=== PATIENT | male | born 1940 | race Hispanic/Latino ===

== ENCOUNTER 2021-01-10 19:52 | Inpatient (IN) | payer OTHER ==
[~2021-01-10] VITALS: Ht 162.6 cm; Wt 70.4 kg
[2021-01-10] MEDS: DOXYCYCLINE 100MG+NS 250ML IV SCH (01:00)
[2021-01-10 20:13] VITALS: BP 123/83
[2021-01-10 21:15] LABS: BASOPHILS % (AUTO) 0.4 % (0.0-5.0); HEMATOCRIT 55.7 % (42-54); MEAN CORPUSCULAR HEMOGLOBIN 30.3 pg (27.0-33.0); MEAN CORPUSCULAR HGB CONC 34.1 g/dL (32.0-36.0); MEAN CORPUSCULAR VOLUME 88.8 fL (79-99); MONOCYTES % (AUTO) 7.7 % (3.0-13.0); NEUTROPHILS % (AUTO) 79.3 % (40.0-77.0); PLATELET COUNT (AUTO) 176 K/uL (130-400); RED BLOOD CELL COUNT(AUTO) 6.27 MIL/uL (4.50-6.20); RED CELL DISTRIBUTION WIDTH 13.2 % (11.0-15.5)
[2021-01-10 21:27] LABS: INR 1.07 (0.85-1.15); PROTHROMBIN TIME 11.6 SEC (9.6-11.6)
[2021-01-10 21:28] LABS: PARTIAL THROMBOPLASTIN TIME 31.5 SEC (26.3-35.5)
[2021-01-10 21:32] LABS: ALBUMIN 2.6 g/dL (3.5-5.0); CREATININE 1.4 mg/dL (0.5-1.5); POTASSIUM 4.2 mmol/L (3.5-5.1); TOTAL PROTEIN, SERUM 7.1 g/dL (6.0-8.3)
[2021-01-10 21:41] VITALS: BP 132/75
[2021-01-10 21:43] LABS: B-TYPE NATRIURETIC PEPTIDE 20 pg/mL (0-100)
[2021-01-10 22:17] LABS: BILIRUBIN,URINE Negative (NEGATIVE); COLOR,URINE Yellow (YELLOW); GLUCOSE, URINE (UA) >=1000 mg/dL (NEGATIVE); KETONES,URINE Trace mg/dL (NEGATIVE); LEUKOCYTE ESTERASE ,URINE Negative (NEGATIVE); NITRATE,URINE Negative (NEGATIVE); OCCULT BLOOD,URINE Negative (NEGATIVE); PROTEIN,URINE POS 1+ mg/dL (NEGATIVE); UROBILINOGEN,URINE 0.2 mg/dL (0.2-1.0)
[2021-01-10] MEDS ORDERED: AZITHROMYCIN 500MG VIAL IVPB ONE (22:30)
[2021-01-10] MEDS ORDERED: CEFTRIAXONE 1G VIAL IVP ONE (22:30)
[2021-01-10] MEDS ORDERED: 0.9% NACL 250ML IVPB ONE (22:30)
[2021-01-10 22:33] LABS: APPEARANCE,URINE CLEAR (CLEAR)
[2021-01-10 22:45] LABS: BACTERIA,URINE Rare /HPF (None Seen); WBC,URINE 0-1 /HPF (0-1)
[2021-01-10 22:46] LABS: SQUAMOUS EPITHELIAL CELL,UR 0-2 /HPF (0-2)
[2021-01-10 22:48] VITALS: BP 124/75
[2021-01-10] MEDS: CEFTRIAXONE 1G VIAL IVP SCH (23:00)
[2021-01-10] MEDS ORDERED: ERGOCALCIFEROL (VITAMIN D2) 50,000 UNIT CAPSULE PO ONE (23:00)
[2021-01-10] MEDS ORDERED: HEPARIN 5,000 UNIT VIAL SQ PRN (23:00)
[2021-01-10] MEDS ORDERED: PHARMACY COMMUNICATION MISC SCH (23:00)
[2021-01-10] MEDS ORDERED: HEPARIN 25,000 UNITS/250ML D5W 250 ML IV SCH (23:00)
[2021-01-10] MEDS ORDERED: INSULIN HUMULIN R 100 UNIT/ML 3ML IV ONE (23:00)
[2021-01-10] MEDS ORDERED: ASPIRIN 81MG CHEW TAB ONE ×2 (23:01→23:09)
[2021-01-10] MEDS ORDERED: AZITHROMYCIN 500MG+NS 250ML 250 ML IV ONE (23:01)
[2021-01-10 23:30] LABS: ABG BASE EXCESS -2.5 mmol/L (-2.0-3.0); ABG OXYGEN SATURATION 91.2 % (95.0-99.0); ABG PCO2 33 mmHg (35-48)
[2021-01-10] MEDS: DEXAMETHASONE SOD PHOSPHATE 4 MG/ML 1ML VIAL IVP SCH (23:38)
[2021-01-10] MEDS: ASPIRIN 81MG CHEW TAB PO SCH (23:40)
[2021-01-11] VITALS (7 sets, daily range): BP systolic 103–124; BP diastolic 58–76
[2021-01-11] MEDS: ALBUTEROL INHALER 90MCG/INH IH SCH ×5 (00:04→19:28)
[2021-01-11] MEDS: NITROGLYCERIN 1GM OINT 1 INCH/1GM TD SCH ×4 (00:04→23:41)
[2021-01-11] MEDS ORDERED: ALBUTEROL INHALER 90MCG/INH IH ONE (00:04)
[2021-01-11] MEDS: 0.9%NACL 1000ML 1,000 ML IV SCH ×2 (00:22→08:32)
[2021-01-11] MEDS ORDERED: HEPARIN 5,000 UNIT VIAL ONE (00:34)
[2021-01-11 06:28] LABS: ABG BASE EXCESS -2.8 mmol/L (-2.0-3.0); ABG HCO3 21.4 mmol/L (21.0-28.0); ABG OXYGEN SATURATION 91.9 % (95.0-99.0); ABG PCO2 36 mmHg (35-48)
[2021-01-11 06:36] LABS: BASOPHILS % (AUTO) 0.1 % (0.0-5.0); HEMATOCRIT 51.9 % (42-54); LYMPHOCYTES % (AUTO) 7.6 % (21.0-51.0); MEAN CORPUSCULAR HEMOGLOBIN 30.4 pg (27.0-33.0); MEAN CORPUSCULAR HGB CONC 34.1 g/dL (32.0-36.0); MEAN CORPUSCULAR VOLUME 89.2 fL (79-99); MONOCYTES % (AUTO) 3.4 % (3.0-13.0); NEUTROPHILS % (AUTO) 88.1 % (40.0-77.0); PLATELET COUNT (AUTO) 182 K/uL (130-400); RED BLOOD CELL COUNT(AUTO) 5.82 MIL/uL (4.50-6.20); RED CELL DISTRIBUTION WIDTH 13.2 % (11.0-15.5); WHITE BLOOD COUNT (AUTO) 7.9 K/uL (4.8-10.8)
[2021-01-11] MEDS ORDERED: COMPOUND IV REFRIGERATED 1 EACH IVSOLN MISC PRN (07:00)
[2021-01-11] MEDS ORDERED: REMDESIVIR (EUA) 520 200 MG in 0.9% NACL 250ML 250 ML IV ONE (07:00)
[2021-01-11 07:04] LABS: INR 1.15 (0.85-1.15); PROTHROMBIN TIME 12.4 SEC (9.6-11.6)
[2021-01-11 07:06] LABS: PARTIAL THROMBOPLASTIN TIME 87.4 SEC (26.3-35.5)
[2021-01-11 07:33] LABS: ALBUMIN 2.3 g/dL (3.5-5.0); BILIRUBIN,TOTAL 0.7 mg/dL (0.2-1.0); CREATININE 1.1 mg/dL (0.5-1.5); POTASSIUM 4.2 mmol/L (3.5-5.1); TOTAL PROTEIN, SERUM 6.5 g/dL (6.0-8.3)
[2021-01-11 07:36] LABS: TROPONIN I 0.93 ng/mL (0.00-0.06)
[2021-01-11] MEDS: INSULIN HUMULIN R 100 UNIT/ML 3ML SQ SCH ×4 (08:09→21:00)
[2021-01-11 08:19] LABS: CRP QUANTITATIVE 193.6 mg/L (0.00-9.0)
[2021-01-11] MEDS: CARVEDILOL 3.125 MG TABLET PO SCH ×2 (08:32→21:26)
[2021-01-11] MEDS: LISINOPRIL 10 MG TABLET PO SCH (08:33)
[2021-01-11] MEDS: ASCORBIC ACID 500 MG TAB PO SCH (08:33)
[2021-01-11] MEDS: ZINC SULFATE 220 CAPSULE PO SCH (08:33)
[2021-01-11] MEDS ORDERED: ASPIRIN 81 MG EC TAB PO SCH (09:00)
[2021-01-11] MEDS: DOXYCYCLINE 100MG+NS 250ML IV SCH ×2 (11:33→23:41)
[2021-01-11] MEDS: CEFTRIAXONE 1G VIAL IVP SCH ×2 (11:33→23:41)
[2021-01-11 13:07] LABS: TROPONIN I 0.73 ng/mL (0.00-0.06)
[2021-01-11 15:42] LABS: TROPONIN I 0.6 ng/mL (0.00-0.06)
[2021-01-11] MEDS: ATORVASTATIN 10 MG TABLET PO SCH (21:26)
[2021-01-11 22:54] LABS: BASOPHILS % (AUTO) 0.1 % (0.0-5.0); EOSINOPHILS % (AUTO) 1.8 % (0.0-8.0); HEMATOCRIT 49.6 % (42-54); LYMPHOCYTES % (AUTO) 8.4 % (21.0-51.0); MEAN CORPUSCULAR HGB CONC 34.3 g/dL (32.0-36.0); MEAN CORPUSCULAR VOLUME 90.3 fL (79-99); MONOCYTES % (AUTO) 7.3 % (3.0-13.0); PLATELET COUNT (AUTO) 204 K/uL (130-400); RED BLOOD CELL COUNT(AUTO) 5.49 MIL/uL (4.50-6.20); RED CELL DISTRIBUTION WIDTH 13.1 % (11.0-15.5); WHITE BLOOD COUNT (AUTO) 9.8 K/uL (4.8-10.8)
[2021-01-11] MEDS: DEXAMETHASONE SOD PHOSPHATE 4 MG/ML 1ML VIAL IVP SCH (23:41)
[2021-01-12] VITALS (9 sets, daily range): BP systolic 100–139; BP diastolic 62–76
[2021-01-12] MEDS: ALBUTEROL INHALER 90MCG/INH IH SCH ×4 (01:22→17:16)
[2021-01-12] MEDS: REMDESIVIR LABS MISC SCH (07:30)
[2021-01-12] MEDS: NITROGLYCERIN 1GM OINT 1 INCH/1GM TD SCH ×3 (07:30→23:55)
[2021-01-12 08:06] LABS: BASOPHILS % (AUTO) 0.2 % (0.0-5.0); EOSINOPHILS % (AUTO) 0.5 % (0.0-8.0); MEAN CORPUSCULAR HEMOGLOBIN 30.5 pg (27.0-33.0); MEAN CORPUSCULAR HGB CONC 33.3 g/dL (32.0-36.0); MEAN CORPUSCULAR VOLUME 91.7 fL (79-99); MONOCYTES % (AUTO) 5.9 % (3.0-13.0); NEUTROPHILS % (AUTO) 85.8 % (40.0-77.0); PLATELET COUNT (AUTO) 226 K/uL (130-400); RED CELL DISTRIBUTION WIDTH 13.4 % (11.0-15.5); WHITE BLOOD COUNT (AUTO) 11.2 K/uL (4.8-10.8)
[2021-01-12] MEDS ORDERED: PHARMACY COMMUNICATION-LABS AST AND ALT PLEASE MISC STA (08:10)
[2021-01-12 08:30] LABS: ALBUMIN 2.6 g/dL (3.5-5.0); BILIRUBIN,TOTAL 0.7 mg/dL (0.2-1.0); CRP QUANTITATIVE 156.8 mg/L (0.00-9.0); TOTAL PROTEIN, SERUM 6.9 g/dL (6.0-8.3)
[2021-01-12] MEDS: DEXAMETHASONE SOD PHOSPHATE 4 MG/ML 1ML VIAL IVP SCH ×2 (08:38→21:56)
[2021-01-12] MEDS: INSULIN HUMULIN R 100 UNIT/ML 3ML SQ SCH ×4 (09:01→21:00)
[2021-01-12] MEDS: ASPIRIN 81MG CHEW TAB PO SCH (09:01)
[2021-01-12] MEDS: ENOXAPARIN SODIUM 40 MG/0.4 ML SYRINGE SQ SCH (09:02)
[2021-01-12] MEDS: CARVEDILOL 3.125 MG TABLET PO SCH ×2 (09:02→21:57)
[2021-01-12] MEDS: LISINOPRIL 10 MG TABLET PO SCH (09:02)
[2021-01-12] MEDS: ZINC SULFATE 220 CAPSULE PO SCH (09:02)
[2021-01-12] MEDS: ASCORBIC ACID 500 MG TAB PO SCH (09:02)
[2021-01-12] MEDS: CEFTRIAXONE 1G VIAL IVP SCH ×2 (11:08→23:54)
[2021-01-12] MEDS: DOXYCYCLINE 100MG+NS 250ML IV SCH ×2 (11:08→23:54)
[2021-01-12] MEDS: REMDESIVIR (EUA) 520 100 MG in 0.9% NACL 250ML 250 ML IV SCH (13:13)
[2021-01-12] MEDS ORDERED: ALPRAZOLAM 0.25 MG TABLET ONE (16:17)
[2021-01-12] MEDS: ATORVASTATIN 10 MG TABLET PO SCH (21:56)
[2021-01-13] MEDS: ALBUTEROL INHALER 90MCG/INH IH SCH ×5 (00:21→23:59)
[2021-01-13 04:28] VITALS: BP 135/79
[2021-01-13 05:29] LABS: BASOPHILS % (AUTO) 0.2 % (0.0-5.0); HEMATOCRIT 51.9 % (42-54); MEAN CORPUSCULAR HEMOGLOBIN 30.5 pg (27.0-33.0); MEAN CORPUSCULAR HGB CONC 34.1 g/dL (32.0-36.0); MEAN CORPUSCULAR VOLUME 89.5 fL (79-99); MONOCYTES % (AUTO) 5.2 % (3.0-13.0); NEUTROPHILS % (AUTO) 89.1 % (40.0-77.0); PLATELET COUNT (AUTO) 241 K/uL (130-400); RED CELL DISTRIBUTION WIDTH 13.3 % (11.0-15.5); WHITE BLOOD COUNT (AUTO) 11.4 K/uL (4.8-10.8)
[2021-01-13 05:57] LABS: ALBUMIN 2.5 g/dL (3.5-5.0); BILIRUBIN,TOTAL 0.8 mg/dL (0.2-1.0); CRP QUANTITATIVE 90.7 mg/L (0.00-9.0); POTASSIUM 3.9 mmol/L (3.5-5.1); TOTAL PROTEIN, SERUM 6.7 g/dL (6.0-8.3)
[2021-01-13] MEDS: REMDESIVIR LABS MISC SCH (06:00)
[2021-01-13] MEDS: INSULIN HUMULIN R 100 UNIT/ML 3ML SQ SCH ×4 (06:47→20:37)
[2021-01-13] MEDS: NITROGLYCERIN 1GM OINT 1 INCH/1GM TD SCH ×2 (06:49→15:00)
[2021-01-13] MEDS: ASPIRIN 81MG CHEW TAB PO SCH (08:06)
[2021-01-13] MEDS: DEXAMETHASONE SOD PHOSPHATE 4 MG/ML 1ML VIAL IVP SCH ×2 (08:07→22:01)
[2021-01-13] MEDS: CARVEDILOL 3.125 MG TABLET PO SCH ×2 (08:07→20:36)
[2021-01-13] MEDS: LISINOPRIL 10 MG TABLET PO SCH (08:08)
[2021-01-13] MEDS: ASCORBIC ACID 500 MG TAB PO SCH (08:08)
[2021-01-13] MEDS: ZINC SULFATE 220 CAPSULE PO SCH (08:08)
[2021-01-13] MEDS: ENOXAPARIN SODIUM 40 MG/0.4 ML SYRINGE SQ SCH (08:09)
[2021-01-13] MEDS: DOXYCYCLINE 100MG+NS 250ML IV SCH ×2 (08:14→22:01)
[2021-01-13] MEDS: CEFTRIAXONE 1G VIAL IVP SCH ×2 (08:14→22:01)
[2021-01-13 08:42] VITALS: BP 132/69
[2021-01-13 11:36] VITALS: BP 127/71
[2021-01-13] MEDS: REMDESIVIR (EUA) 520 100 MG in 0.9% NACL 250ML 250 ML IV SCH (14:58)
[2021-01-13 15:28] LABS: TROPONIN I 0.47 ng/mL (0.00-0.06)
[2021-01-13 16:33] VITALS: BP 121/75
[2021-01-13 20:00] VITALS: BP 133/73
[2021-01-13] MEDS: ATORVASTATIN 10 MG TABLET PO SCH (20:35)
[2021-01-13 23:37] VITALS: BP 135/72
[2021-01-14 04:29] VITALS: BP 130/74
[2021-01-14 05:07] LABS: BASOPHILS % (AUTO) 0.2 % (0.0-5.0); HEMATOCRIT 53.1 % (42-54); LYMPHOCYTES % (AUTO) 4.6 % (21.0-51.0); MEAN CORPUSCULAR HEMOGLOBIN 30.5 pg (27.0-33.0); MEAN CORPUSCULAR HGB CONC 34.3 g/dL (32.0-36.0); MEAN CORPUSCULAR VOLUME 89.1 fL (79-99); MONOCYTES % (AUTO) 6.3 % (3.0-13.0); NEUTROPHILS % (AUTO) 88.2 % (40.0-77.0); PLATELET COUNT (AUTO) 259 K/uL (130-400); RED BLOOD CELL COUNT(AUTO) 5.96 MIL/uL (4.50-6.20); RED CELL DISTRIBUTION WIDTH 13.2 % (11.0-15.5); WHITE BLOOD COUNT (AUTO) 10.8 K/uL (4.8-10.8)
[2021-01-14 05:35] LABS: ALBUMIN 2.6 g/dL (3.5-5.0); BILIRUBIN,TOTAL 0.9 mg/dL (0.2-1.0); CREATININE 0.8 mg/dL (0.5-1.5); CRP QUANTITATIVE 55.2 mg/L (0.00-9.0); POTASSIUM 4.3 mmol/L (3.5-5.1); TOTAL PROTEIN, SERUM 6.2 g/dL (6.0-8.3)
[2021-01-14] MEDS: REMDESIVIR LABS MISC SCH (06:00)
[2021-01-14] MEDS: ALBUTEROL INHALER 90MCG/INH IH SCH ×3 (06:19→16:46)
[2021-01-14] MEDS: INSULIN HUMULIN R 100 UNIT/ML 3ML SQ SCH ×4 (06:21→20:22)
[2021-01-14 08:14] VITALS: BP 137/75
[2021-01-14] MEDS: ZINC SULFATE 220 CAPSULE PO SCH (08:35)
[2021-01-14] MEDS: ASPIRIN 81MG CHEW TAB PO SCH (08:36)
[2021-01-14] MEDS: LISINOPRIL 10 MG TABLET PO SCH (08:38)
[2021-01-14] MEDS: CARVEDILOL 3.125 MG TABLET PO SCH ×2 (08:38→20:23)
[2021-01-14] MEDS: ASCORBIC ACID 500 MG TAB PO SCH (08:38)
[2021-01-14] MEDS: BARICITINIB (EUA) 2 MG TABLET PO SCH (08:39)
[2021-01-14] MEDS: DEXAMETHASONE SOD PHOSPHATE 4 MG/ML 1ML VIAL IVP SCH ×2 (08:39→22:20)
[2021-01-14] MEDS: ENOXAPARIN SODIUM 40 MG/0.4 ML SYRINGE SQ SCH (08:39)
[2021-01-14 10:54] VITALS: BP 129/74
[2021-01-14] MEDS: DOXYCYCLINE 100MG+NS 250ML IV SCH ×2 (11:51→22:20)
[2021-01-14] MEDS: CEFTRIAXONE 1G VIAL IVP SCH ×2 (11:51→22:20)
[2021-01-14 16:28] VITALS: BP 135/70
[2021-01-14] MEDS: REMDESIVIR (EUA) 520 100 MG in 0.9% NACL 250ML 250 ML IV SCH (16:43)
[2021-01-14 19:56] VITALS: BP 130/65
[2021-01-14] MEDS: ATORVASTATIN 10 MG TABLET PO SCH (20:21)
[2021-01-14 23:51] VITALS: BP 139/79
[2021-01-15] MEDS: ALBUTEROL INHALER 90MCG/INH IH SCH ×5 (00:48→23:34)
[2021-01-15 03:54] VITALS: BP 143/77
[2021-01-15 05:19] LABS: HEMATOCRIT 50.8 % (42-54); LYMPHOCYTES % (AUTO) 7.8 % (21.0-51.0); MEAN CORPUSCULAR HEMOGLOBIN 30.4 pg (27.0-33.0); MEAN CORPUSCULAR HGB CONC 34.1 g/dL (32.0-36.0); MEAN CORPUSCULAR VOLUME 89.1 fL (79-99); MONOCYTES % (AUTO) 7.9 % (3.0-13.0); NEUTROPHILS % (AUTO) 83.8 % (40.0-77.0); PLATELET COUNT (AUTO) 247 K/uL (130-400); RED CELL DISTRIBUTION WIDTH 13.2 % (11.0-15.5); WHITE BLOOD COUNT (AUTO) 7.5 K/uL (4.8-10.8)
[2021-01-15 05:38] LABS: ALBUMIN 2.5 g/dL (3.5-5.0); CREATININE 0.8 mg/dL (0.5-1.5); CRP QUANTITATIVE 34.2 mg/L (0.00-9.0); POTASSIUM 3.6 mmol/L (3.5-5.1); TOTAL PROTEIN, SERUM 6.2 g/dL (6.0-8.3)
[2021-01-15] MEDS: REMDESIVIR LABS MISC SCH (06:00)
[2021-01-15] MEDS: INSULIN HUMULIN R 100 UNIT/ML 3ML SQ SCH ×4 (06:27→21:07)
[2021-01-15 08:06] VITALS: BP 134/72
[2021-01-15] MEDS: CARVEDILOL 3.125 MG TABLET PO SCH ×2 (08:28→21:02)
[2021-01-15] MEDS: DEXAMETHASONE SOD PHOSPHATE 4 MG/ML 1ML VIAL IVP SCH ×2 (08:28→23:16)
[2021-01-15] MEDS: ENOXAPARIN SODIUM 40 MG/0.4 ML SYRINGE SQ SCH ×2 (08:29→21:03)
[2021-01-15] MEDS: LISINOPRIL 10 MG TABLET PO SCH (08:29)
[2021-01-15] MEDS: ZINC SULFATE 220 CAPSULE PO SCH (08:29)
[2021-01-15] MEDS: ASCORBIC ACID 500 MG TAB PO SCH (08:29)
[2021-01-15] MEDS: ASPIRIN 81MG CHEW TAB PO SCH (08:29)
[2021-01-15] MEDS: BARICITINIB (EUA) 2 MG TABLET PO SCH (08:31)
[2021-01-15 11:02] VITALS: BP 139/70
[2021-01-15] MEDS: DOXYCYCLINE 100MG+NS 250ML IV SCH ×2 (13:11→23:16)
[2021-01-15] MEDS: CEFTRIAXONE 1G VIAL IVP SCH ×2 (13:11→23:16)
[2021-01-15 15:38] VITALS: BP 135/70
[2021-01-15] MEDS: REMDESIVIR (EUA) 520 100 MG in 0.9% NACL 250ML 250 ML IV SCH (17:31)
[2021-01-15 20:00] VITALS: BP 123/73
[2021-01-15] MEDS: ATORVASTATIN 10 MG TABLET PO SCH (21:02)
[2021-01-16] VITALS: BP 124/69
[2021-01-16 04:00] VITALS: BP 119/70
[2021-01-16 05:29] LABS: BASOPHILS % (AUTO) 0.1 % (0.0-5.0); HEMATOCRIT 51.5 % (42-54); LYMPHOCYTES % (AUTO) 7.9 % (21.0-51.0); MEAN CORPUSCULAR HEMOGLOBIN 30.4 pg (27.0-33.0); MEAN CORPUSCULAR HGB CONC 34.2 g/dL (32.0-36.0); MEAN CORPUSCULAR VOLUME 88.9 fL (79-99); MONOCYTES % (AUTO) 7.1 % (3.0-13.0); NEUTROPHILS % (AUTO) 84.4 % (40.0-77.0); PLATELET COUNT (AUTO) 191 K/uL (130-400); RED BLOOD CELL COUNT(AUTO) 5.79 MIL/uL (4.50-6.20); RED CELL DISTRIBUTION WIDTH 13.1 % (11.0-15.5); WHITE BLOOD COUNT (AUTO) 8.1 K/uL (4.8-10.8)
[2021-01-16] MEDS: INSULIN HUMULIN R 100 UNIT/ML 3ML SQ SCH ×4 (05:32→20:49)
[2021-01-16] MEDS: ALBUTEROL INHALER 90MCG/INH IH SCH ×3 (06:04→17:24)
[2021-01-16 06:11] LABS: ALBUMIN 2.4 g/dL (3.5-5.0); CREATININE 0.8 mg/dL (0.5-1.5); CRP QUANTITATIVE 24.3 mg/L (0.00-9.0); POTASSIUM 3.8 mmol/L (3.5-5.1); TOTAL PROTEIN, SERUM 5.8 g/dL (6.0-8.3)
[2021-01-16 08:19] VITALS: BP 150/81
[2021-01-16] MEDS: DEXAMETHASONE SOD PHOSPHATE 4 MG/ML 1ML VIAL IVP SCH ×2 (09:15→20:38)
[2021-01-16] MEDS: BARICITINIB (EUA) 2 MG TABLET PO SCH (09:15)
[2021-01-16] MEDS: ZINC SULFATE 220 CAPSULE PO SCH (09:15)
[2021-01-16] MEDS: CARVEDILOL 3.125 MG TABLET PO SCH ×2 (09:16→20:36)
[2021-01-16] MEDS: ASCORBIC ACID 500 MG TAB PO SCH (09:16)
[2021-01-16] MEDS: LISINOPRIL 10 MG TABLET PO SCH (09:17)
[2021-01-16] MEDS: ENOXAPARIN SODIUM 40 MG/0.4 ML SYRINGE SQ SCH ×2 (09:18→20:37)
[2021-01-16] MEDS: ASPIRIN 325MG TAB PO SCH (11:16)
[2021-01-16 11:29] VITALS: BP 150/77
[2021-01-16] MEDS: DOXYCYCLINE 100MG+NS 250ML IV SCH ×2 (12:28→20:38)
[2021-01-16] MEDS: CEFTRIAXONE 1G VIAL IVP SCH ×2 (12:28→20:37)
[2021-01-16 16:55] VITALS: BP 152/77
[2021-01-16] MEDS ORDERED: 0.9% NACL 250ML 250 ML ONE (19:58)
[2021-01-16 20:25] VITALS: BP 144/66
[2021-01-16] MEDS: ATORVASTATIN 10 MG TABLET PO SCH (20:35)
[2021-01-17 00:32] VITALS: BP 129/80
[2021-01-17 05:05] LABS: BASOPHILS % (AUTO) 0.2 % (0.0-5.0); EOSINOPHILS % (AUTO) 0.2 % (0.0-8.0); LYMPHOCYTES % (AUTO) 9.6 % (21.0-51.0); MEAN CORPUSCULAR HGB CONC 34.2 g/dL (32.0-36.0); MEAN CORPUSCULAR VOLUME 87.9 fL (79-99); MONOCYTES % (AUTO) 7.4 % (3.0-13.0); NEUTROPHILS % (AUTO) 81.9 % (40.0-77.0); PLATELET COUNT (AUTO) 205 K/uL (130-400); RED BLOOD CELL COUNT(AUTO) 6.03 MIL/uL (4.50-6.20); WHITE BLOOD COUNT (AUTO) 11.8 K/uL (4.8-10.8)
[2021-01-17 05:22] LABS: ALBUMIN 2.4 g/dL (3.5-5.0); BILIRUBIN,TOTAL 1.4 mg/dL (0.2-1.0); CREATININE 0.8 mg/dL (0.5-1.5); CRP QUANTITATIVE 19.1 mg/L (0.00-9.0); POTASSIUM 3.7 mmol/L (3.5-5.1); TOTAL PROTEIN, SERUM 5.7 g/dL (6.0-8.3)
[2021-01-17] MEDS: INSULIN HUMULIN R 100 UNIT/ML 3ML SQ SCH ×4 (05:35→20:48)
[2021-01-17] MEDS: ALBUTEROL INHALER 90MCG/INH IH SCH ×3 (06:09→10:06)
[2021-01-17 08:18] VITALS: BP 139/68
[2021-01-17] MEDS: CEFTRIAXONE 1G VIAL IVP SCH (08:28)
[2021-01-17] MEDS: DOXYCYCLINE 100MG+NS 250ML IV SCH (08:28)
[2021-01-17] MEDS: DEXAMETHASONE SOD PHOSPHATE 4 MG/ML 1ML VIAL IVP SCH ×2 (08:28→22:30)
[2021-01-17] MEDS: ASCORBIC ACID 500 MG TAB PO SCH (08:29)
[2021-01-17] MEDS: ASPIRIN 325MG TAB PO SCH (08:29)
[2021-01-17] MEDS: CARVEDILOL 3.125 MG TABLET PO SCH ×2 (08:29→20:50)
[2021-01-17] MEDS: LISINOPRIL 10 MG TABLET PO SCH (08:29)
[2021-01-17] MEDS: ZINC SULFATE 220 CAPSULE PO SCH (08:29)
[2021-01-17] MEDS: BARICITINIB (EUA) 2 MG TABLET PO SCH (11:59)
[2021-01-17] MEDS: ENOXAPARIN SODIUM 40 MG/0.4 ML SYRINGE SQ SCH ×2 (12:00→20:52)
[2021-01-17 12:04] VITALS: BP 123/57
[2021-01-17 17:03] VITALS: BP 118/70
[2021-01-17 20:39] VITALS: BP 121/58
[2021-01-17] MEDS: ATORVASTATIN 10 MG TABLET PO SCH (20:52)
[2021-01-17 23:31] VITALS: BP 125/65
[2021-01-18 03:46] VITALS: BP 137/58
[2021-01-18] MEDS: ALBUTEROL INHALER 90MCG/INH IH SCH ×4 (05:19→18:00)
[2021-01-18] MEDS: INSULIN HUMULIN R 100 UNIT/ML 3ML SQ SCH ×4 (05:36→21:15)
[2021-01-18] MEDS: ZINC SULFATE 220 CAPSULE PO SCH (08:20)
[2021-01-18] MEDS: ASPIRIN 325MG TAB PO SCH (08:20)
[2021-01-18] MEDS: ASCORBIC ACID 500 MG TAB PO SCH (08:20)
[2021-01-18] MEDS: CARVEDILOL 3.125 MG TABLET PO SCH ×2 (08:21→21:17)
[2021-01-18] MEDS: LISINOPRIL 10 MG TABLET PO SCH (08:21)
[2021-01-18] MEDS: DEXAMETHASONE SOD PHOSPHATE 4 MG/ML 1ML VIAL IVP SCH ×3 (08:21→22:30)
[2021-01-18] MEDS: ENOXAPARIN SODIUM 40 MG/0.4 ML SYRINGE SQ SCH ×2 (08:22→21:18)
[2021-01-18] MEDS: BARICITINIB (EUA) 2 MG TABLET PO SCH (08:23)
[2021-01-18 08:28] VITALS: BP 129/74
[2021-01-18 11:05] VITALS: BP 111/63
[2021-01-18 16:46] VITALS: BP 135/68
[2021-01-18 20:00] VITALS: BP 100/56
[2021-01-18] MEDS: ATORVASTATIN 10 MG TABLET PO SCH (21:17)
[2021-01-18 23:39] VITALS: BP 110/65
[2021-01-19] MEDS: ALBUTEROL INHALER 90MCG/INH IH SCH ×4 (01:30→18:21)
[2021-01-19 04:00] VITALS: BP 117/59
[2021-01-19 06:14] LABS: BASOPHILS % (AUTO) 0.1 % (0.0-5.0); LYMPHOCYTES % (AUTO) 8.9 % (21.0-51.0); MEAN CORPUSCULAR HEMOGLOBIN 30.3 pg (27.0-33.0); MEAN CORPUSCULAR HGB CONC 34.1 g/dL (32.0-36.0); NEUTROPHILS % (AUTO) 84.4 % (40.0-77.0); PLATELET COUNT (AUTO) 174 K/uL (130-400); RED BLOOD CELL COUNT(AUTO) 6.07 MIL/uL (4.50-6.20); WHITE BLOOD COUNT (AUTO) 7.9 K/uL (4.8-10.8)
[2021-01-19 06:29] LABS: CREATININE 0.8 mg/dL (0.5-1.5); POTASSIUM 3.8 mmol/L (3.5-5.1)
[2021-01-19] MEDS: INSULIN HUMULIN R 100 UNIT/ML 3ML SQ SCH ×4 (06:52→20:55)
[2021-01-19 08:00] VITALS: BP 119/59
[2021-01-19] MEDS: ZINC SULFATE 220 CAPSULE PO SCH (08:29)
[2021-01-19] MEDS: ASPIRIN 325MG TAB PO SCH (08:29)
[2021-01-19] MEDS: ASCORBIC ACID 500 MG TAB PO SCH (08:29)
[2021-01-19] MEDS: ENOXAPARIN SODIUM 40 MG/0.4 ML SYRINGE SQ SCH ×2 (08:30→20:55)
[2021-01-19] MEDS: LISINOPRIL 10 MG TABLET PO SCH (08:30)
[2021-01-19] MEDS: CARVEDILOL 3.125 MG TABLET PO SCH ×2 (08:38→20:55)
[2021-01-19] MEDS: BARICITINIB (EUA) 2 MG TABLET PO SCH (08:46)
[2021-01-19 12:00] VITALS: BP 105/56
[2021-01-19 16:00] VITALS: BP 99/59
[2021-01-19 20:00] VITALS: BP 108/62
[2021-01-19] MEDS: ATORVASTATIN 10 MG TABLET PO SCH (20:55)
[2021-01-19 23:48] VITALS: BP 106/57
[2021-01-20] MEDS: ALBUTEROL INHALER 90MCG/INH IH SCH ×5 (01:09→23:35)
[2021-01-20 04:00] VITALS: BP_SYST 108; BP_SYST 148; BP_DIAS 57; BP_DIAS 75
[2021-01-20 06:22] LABS: BASOPHILS % (AUTO) 0.1 % (0.0-5.0); EOSINOPHILS % (AUTO) 0.4 % (0.0-8.0); HEMATOCRIT 50.6 % (42-54); LYMPHOCYTES % (AUTO) 10.7 % (21.0-51.0); MEAN CORPUSCULAR HEMOGLOBIN 30.4 pg (27.0-33.0); MEAN CORPUSCULAR HGB CONC 34.2 g/dL (32.0-36.0); MEAN CORPUSCULAR VOLUME 88.8 fL (79-99); MONOCYTES % (AUTO) 7.2 % (3.0-13.0); NEUTROPHILS % (AUTO) 80.8 % (40.0-77.0); PLATELET COUNT (AUTO) 222 K/uL (130-400); WHITE BLOOD COUNT (AUTO) 13.5 K/uL (4.8-10.8)
[2021-01-20] MEDS: INSULIN HUMULIN R 100 UNIT/ML 3ML SQ SCH ×4 (06:27→21:00)
[2021-01-20 06:39] LABS: CREATININE 0.8 mg/dL (0.5-1.5); CRP QUANTITATIVE 24.1 mg/L (0.00-9.0); POTASSIUM 3.6 mmol/L (3.5-5.1)
[2021-01-20 08:00] VITALS: BP 112/54
[2021-01-20] MEDS: DEXAMETHASONE SOD PHOSPHATE 4 MG/ML 1ML VIAL IVP SCH (08:15)
[2021-01-20] MEDS: ZINC SULFATE 220 CAPSULE PO SCH (08:15)
[2021-01-20] MEDS: ASPIRIN 325MG TAB PO SCH (08:16)
[2021-01-20] MEDS: ASCORBIC ACID 500 MG TAB PO SCH (08:16)
[2021-01-20] MEDS: CARVEDILOL 3.125 MG TABLET PO SCH ×3 (08:16→23:34)
[2021-01-20] MEDS: LISINOPRIL 10 MG TABLET PO SCH (08:16)
[2021-01-20] MEDS: ENOXAPARIN SODIUM 40 MG/0.4 ML SYRINGE SQ SCH ×2 (08:18→21:11)
[2021-01-20] MEDS: BARICITINIB (EUA) 2 MG TABLET PO SCH (08:58)
[2021-01-20 12:00] VITALS: BP 114/71
[2021-01-20 16:00] VITALS: BP 98/56
[2021-01-20 20:11] VITALS: BP 99/56
[2021-01-20] MEDS: ATORVASTATIN 10 MG TABLET PO SCH (21:10)
[2021-01-20 23:51] VITALS: BP 112/60
[2021-01-21 04:00] VITALS: BP 119/61
[2021-01-21] MEDS: INSULIN HUMULIN R 100 UNIT/ML 3ML SQ SCH ×4 (06:06→21:37)
[2021-01-21 07:00] VITALS: BP 113/65
[2021-01-21] MEDS: ALBUTEROL INHALER 90MCG/INH IH SCH ×3 (07:03→18:49)
[2021-01-21 07:09] LABS: BASOPHILS % (AUTO) 0.2 % (0.0-5.0); EOSINOPHILS % (AUTO) 0.2 % (0.0-8.0); HEMATOCRIT 54.5 % (42-54); LYMPHOCYTES % (AUTO) 13.8 % (21.0-51.0); MEAN CORPUSCULAR HEMOGLOBIN 30.2 pg (27.0-33.0); MEAN CORPUSCULAR HGB CONC 33.2 g/dL (32.0-36.0); MEAN CORPUSCULAR VOLUME 90.8 fL (79-99); MONOCYTES % (AUTO) 8.2 % (3.0-13.0); NEUTROPHILS % (AUTO) 76.7 % (40.0-77.0); PLATELET COUNT (AUTO) 168 K/uL (130-400); RED CELL DISTRIBUTION WIDTH 13.1 % (11.0-15.5)
[2021-01-21 07:19] LABS: CREATININE 0.9 mg/dL (0.5-1.5); CRP QUANTITATIVE 33.1 mg/L (0.00-9.0); POTASSIUM 3.6 mmol/L (3.5-5.1)
[2021-01-21] MEDS: ASPIRIN 325MG TAB PO SCH (09:22)
[2021-01-21] MEDS: DEXAMETHASONE SOD PHOSPHATE 4 MG/ML 1ML VIAL IVP SCH (09:22)
[2021-01-21] MEDS: LISINOPRIL 10 MG TABLET PO SCH (09:23)
[2021-01-21] MEDS: CARVEDILOL 3.125 MG TABLET PO SCH ×2 (09:23→21:32)
[2021-01-21] MEDS: ZINC SULFATE 220 CAPSULE PO SCH (09:23)
[2021-01-21] MEDS: BARICITINIB (EUA) 2 MG TABLET PO SCH (09:23)
[2021-01-21] MEDS: ASCORBIC ACID 500 MG TAB PO SCH (09:23)
[2021-01-21] MEDS: ENOXAPARIN SODIUM 40 MG/0.4 ML SYRINGE SQ SCH ×2 (09:24→21:24)
[2021-01-21 11:00] VITALS: BP 105/63
[2021-01-21 16:00] VITALS: BP 106/52
[2021-01-21 20:20] VITALS: BP 96/58
[2021-01-21] MEDS: ATORVASTATIN 10 MG TABLET PO SCH (21:24)
[2021-01-22 00:20] VITALS: BP 102/54
[2021-01-22] MEDS: ALBUTEROL INHALER 90MCG/INH IH SCH ×3 (00:58→13:02)
[2021-01-22 04:20] VITALS: BP 108/54
[2021-01-22] MEDS: INSULIN HUMULIN R 100 UNIT/ML 3ML SQ SCH ×2 (06:15→11:16)
[2021-01-22 06:38] LABS: BASOPHILS % (AUTO) 0.1 % (0.0-5.0); EOSINOPHILS % (AUTO) 0.2 % (0.0-8.0); HEMATOCRIT 49.7 % (42-54); MEAN CORPUSCULAR HEMOGLOBIN 29.8 pg (27.0-33.0); MEAN CORPUSCULAR HGB CONC 33.6 g/dL (32.0-36.0); MEAN CORPUSCULAR VOLUME 88.6 fL (79-99); MONOCYTES % (AUTO) 11.3 % (3.0-13.0); NEUTROPHILS % (AUTO) 73.3 % (40.0-77.0); PLATELET COUNT (AUTO) 183 K/uL (130-400); RED BLOOD CELL COUNT(AUTO) 5.61 MIL/uL (4.50-6.20); RED CELL DISTRIBUTION WIDTH 12.9 % (11.0-15.5); WHITE BLOOD COUNT (AUTO) 11.2 K/uL (4.8-10.8)
[2021-01-22 06:49] LABS: CREATININE 0.9 mg/dL (0.5-1.5); CRP QUANTITATIVE 18.2 mg/L (0.00-9.0); POTASSIUM 3.7 mmol/L (3.5-5.1)
[2021-01-22 08:00] VITALS: BP 115/64
[2021-01-22] MEDS: BARICITINIB (EUA) 2 MG TABLET PO SCH (08:32)
[2021-01-22] MEDS: ASPIRIN 325MG TAB PO SCH (08:33)
[2021-01-22] MEDS: ASCORBIC ACID 500 MG TAB PO SCH (08:33)
[2021-01-22] MEDS: ZINC SULFATE 220 CAPSULE PO SCH (08:33)
[2021-01-22] MEDS: LISINOPRIL 10 MG TABLET PO SCH (08:34)
[2021-01-22] MEDS: CARVEDILOL 3.125 MG TABLET PO SCH (08:34)
[2021-01-22] MEDS: DEXAMETHASONE SOD PHOSPHATE 4 MG/ML 1ML VIAL IVP SCH (08:35)
[2021-01-22] MEDS: ENOXAPARIN SODIUM 40 MG/0.4 ML SYRINGE SQ SCH (08:35)
[2021-01-22 12:00] VITALS: BP 122/69
[2021-01-22] MEDS ORDERED: ATOR10 PO (13:02)
[2021-01-22] MEDS ORDERED: ALBU8.5H8 IH (13:02)
[2021-01-22] MEDS ORDERED: LISI-809 PO (13:02)
[2021-01-22] MEDS ORDERED: CARV3.1262 PO (13:02)
[2021-01-22] MEDS ORDERED: GLIP5TAB11 PO (13:02)
[2021-01-22] MEDS ORDERED: PANT40TA55 PO (13:02)
[2021-01-22] MEDS ORDERED: APIX2.5T PO (13:02)
[2021-01-22] MEDS ORDERED: METF-444 PO (13:02)
[2021-01-22] MEDS ORDERED: EMPA25TA PO (13:02)
== END 2021-01-22 14:35 | disposition home or self-care (01) | DRG 177 ==
LOC: EDH 19:52 → EDHIP 22:55 → 4BH 01-12 21:52
PROVIDERS: ADMIT Internal Medicine; ATTEND Internal Medicine
PROC: XW033E5 Introduction of Remdesivir Anti-infective into Peripheral Vein, Percutaneous Approach, New Technology Group 5 (ICD-10-PCS; principal; 2021-01-11)
PROC: XW0DXM6 Introduction of Baricitinib into Mouth and Pharynx, External Approach, New Technology Group 6 (ICD-10-PCS; 2021-01-14)
PROC: 5A0935A Assistance with Respiratory Ventilation, Less than 24 Consecutive Hours, High Flow/Velocity Cannula (ICD-10-PCS; 2021-01-15)
PROC: 5A0935A Assistance with Respiratory Ventilation, Less than 24 Consecutive Hours, High Flow/Velocity Cannula (ICD-10-PCS; 2021-01-16)
PROC: 5A0935A Assistance with Respiratory Ventilation, Less than 24 Consecutive Hours, High Flow/Velocity Cannula (ICD-10-PCS; 2021-01-17)
PROC: 5A0935A Assistance with Respiratory Ventilation, Less than 24 Consecutive Hours, High Flow/Velocity Cannula (ICD-10-PCS; 2021-01-18)
PROC: 5A0935A Assistance with Respiratory Ventilation, Less than 24 Consecutive Hours, High Flow/Velocity Cannula (ICD-10-PCS; 2021-01-19)
PROC: 5A0935A Assistance with Respiratory Ventilation, Less than 24 Consecutive Hours, High Flow/Velocity Cannula (ICD-10-PCS; 2021-01-20)
DX: U07.1 COVID-19 (principal); J12.82 Pneumonia due to coronavirus disease 2019; J96.01 Acute respiratory failure with hypoxia; I21.4 Non-ST elevation (NSTEMI) myocardial infarction; D68.69 Other thrombophilia; E11.9 Type 2 diabetes mellitus without complications; I11.9 Hypertensive heart disease without heart failure; E78.00 Pure hypercholesterolemia, unspecified; Z66 Do not resuscitate; E78.5 Hyperlipidemia, unspecified; I25.10 Atherosclerotic heart disease of native coronary artery without angina pectoris; R77.8 Other specified abnormalities of plasma proteins; E66.9 Obesity, unspecified; Z68.26 Body mass index [BMI] 26.0-26.9, adult; Z95.1 Presence of aortocoronary bypass graft; Z79.82 Long term (current) use of aspirin
CPT/HCPCS: 36415; 36600; 71045; 80048; 80053; 80061; 81001; 82550; 82728; 82803; 82948; 83036; 83615; 83874; 83880; 84145; 84484; 85025; 85378; 85610; 85730; 86140; 87635; 87804; 93005; 93970; 94760; A4606; C9803; G0378; J0456; J0696; J1100; J1644; J1650; J1815; J3490; J7050